=== PATIENT | female | born 1940 | race Caucasian/White ===

== ENCOUNTER 2016-08-31 13:23 | Emergency (ER) | payer OTHER ==
[~2016-08-31] VITALS: Ht 162.6 cm; Wt 49.9 kg
[2016-08-31 13:23] VITALS: BP 116/67
[~2016-08-31 13:23] MED LIST: ACEPHEN650 M1 RC; ACETAMINOP160 MG/12 PER TUBE; ACETAMINOP160 MG/5 M PER TUBE; ACETAMINOPHEN650 MG RECTAL; ALUM-MAG HYDRO360 ML PER TUBE; AMOX TR-K CLV1 EAC4 PO; ANTACID ANTI-G355 ML PO; ARTIFICIAL TEA1 EAC1 OP; ARTIFICIAL TEA1 EACH OP; ARTIFICIAL TEA1 EACH OPHTHALMIC; ARTIFICIAL TEA3.5 G2; ARTIFICIAL TEAR15 M3; ARTIFICIAL TEAR15 M3 OPHTHALMIC; ATIVAN1 MG PER TUBE; ATIVAN1 MG PO; AUGMENTIN 875875 MG PER TUBE; AUGMENTIN 875875 MG PO; CEFTIN 250 MG250 MG PER TUBE; CEFTIN 250 MG250 MG PO; CHLORHEXADINE120 M1 PO; CIPRO500 MG PER TUBE; CONSTULOSE10 GM/15 M PER TUBE; CONSTULOSE10 GM/15 M PO; DEX4 GLUCOSE1 EACH PO; DIGOX125 MCG PER TUBE; DUONEB 2.5-0.5 M3 ML INH; ENOXAPARIN30 MG/0.1 SUBQ; ENOXAPARIN40 MG/0.1 SUBQ; FAMOTIDINE PER TUBE; FAMOTIDINE40 MG/5 ML GT; FEVERALL JR 32325 M1 RECTAL; FEVERALL325 MG RECTAL; FEVERALL650 MG RECTAL; FLUOCINONI0.05 %/31 TOP; GERI-LANTA LIQ355 ML; GERI-LANTA LIQ355 ML PER TUBE; GLUCAGEN1 M2 INJECTION; GLUCAGEN1 MG IM; GLUCAGON HCL1 MG IM; GLUCOSE 40% GEL; GLUCOSE BITS1 GM PO; GLUTOSE GEL 1515 G1 PO; GLYCOPYRROLATE 11 MG PER TUBE; HYDROCODONE-AP1 EAC6 PER TUBE; INVANZ 1GM/NS 101 GM IV; IPRAT-ALBUT 0.5-3 ML INH; JEVITY1000 M1; K-SOL20 MEQ/15 PER TUBE; KEPPRA 100100 MG/M1 PER TUBE; KEPPRA 100100 MG/ML PER TUBE; KEPPRA 500 MG500 M1 PER TUBE; KEPPRA 500 MG500 M1 PO; KEPPRA 500 MG500 M2 PO; KEPPRA PER TUBE; KEPPRA XR750 MG PO; KETODAN 2% FOA554 GM; KRISTALOSE10 GM PER TUBE; LACTULOSE20 GM/30 M PER TUBE; LAMISIL AT 1% C12 G1; LAMISIL AT 1% C12 G1 TOP; LAMISIL AT 1% C12 G1 TP; LANOXIN 0.120.125 M2 PER TUBE; LIPITOR 20 MG T20 M1; LIPITOR 20 MG T20 M1 PER TUBE; LIPITOR 20 MG T20 M1 PO; LIQUITEARS15 ML OP; LIQUITEARS15 ML OPHTHALMIC; LOPRESSOR 12.12.5 MG PER TUBE; LOPRESSOR25 PER TUBE; LORAZEPAM 2MG TA2 M1 PER TUBE; LORAZEPAM I2 MG/1 ML PER TUBE; LORAZEPAM2 MG/1 M2 PER TUBE; MAG-AL PLUS SUS30 ML; MAGNESIUM OXID400 MG PER TUBE; MAGNESIUM400 M1 PER TUBE; MAGNESIUM400 MG PER TUBE; MAGOX 400400 MG PER TUBE; MAGOX 400400 MG PO; MAPAP160 MG/51 PER TUBE; MAPAP160 MG/53 PER TUBE; MAXIPIME1 GM IVPB; MI ACID LIQUID355 ML PO; MI-ACID80 MG PER TUBE; MORPHINE S20 MG/1 ML PO; NEPHRO-VITE RX1 TA1 GT; NEPHROCAPS SOFT1 CAP; NEPHROCAPS SOFT1 CAP GT; NEPHROCAPS SOFT1 CAP PER TUBE; NEPHROCAPS SOFT1 CAP PO; NITROFURAN25 MG/5 ML PER TUBE; NIZORAL120 ML TP; NORVASC5 M1 PER TUBE; NORVASC5 MG; NORVASC5 MG PER TUBE; NOVOLOG FL100 UNIT/M SUBQ; NOVOLOG100 UNIT/1; NOVOLOG100 UNIT/1 SQ; NOVOLOG100 UNIT/1 SUBQ; NOVOLOG100 UNIT/M SUBQ; ONDANSETRON HCL4 M2 PO; ORADENT 0.1% DEN5 G1; ORADENT 0.1% DEN5 G1 TOP; PANTOPRAZOLE SO40 M1 PO; PAROXETINE HCL20 MG PER TUBE; PAXIL 20 MG TAB20 MG PER TUBE; PAXIL10 MG; PEPCID20 MG PO; PERIDEX 0.12%473 M1 PO; PERIDEX15 ML MM; PERIDEX15 ML SWISH&SPIT; POT CHLORIDE 10% PER TUBE; POTASSIUM20 MEQ/15 PER TUBE; POTASSIUM20 PER TUBE; PREDNISONE 10 M10 MG PO; PREVACID 15 MG15 M4 DISSOLVE; PREVACID 15 MG15 M4 PER TUBE; PREVACID15 MG; PROBIOTIC1 EAC1 PER TUBE; PROTONIX40 M1 IV; PROTONIX40 M1 PO; PROTONIX40 M2 PER TUBE; PROTONIX40 M3 PER TUBE; Q-PAP160 MG/5 M PER TUBE; RENAL CAPS SOFTG1 MG PER TUBE; RENAL CAPS SOFTG1 MG PO; ROXANOL T PER TUBE; SIMVASTATIN40 MG PER TUBE; SULFAMETHOXAZO1 EACH PO; TEARS NATURALE1 EACH OPHTHALMIC; TERBINAFINE15 GM TP; TRIAMCINOLONE A15 G1 TOP; TRIAMCINOLONE A80 G2; TRIAMCINOLONE A80 G2 TOP; TYLENOL325 MG PER TUBE; VISTARIL 25 MG25 M1 PO; ZOSYN 3.3753.375 GM IV; ZYVOX600 MG PO; [UNRECOGNIZED DRUG - CODE] PER TUBE; [UNRECOGNIZED DRUG - OTHER]; [UNRECOGNIZED DRUG - OTHER] PER TUBE; [UNRECOGNIZED DRUG - OTHER] TOP
[2016-08-31 16:54] VITALS: BP 134/85
== END 2016-08-31 17:04 ==
LOC: ER 13:23 → EROBS 16:59 → ER 16:59 → EROBS 17:04 → ER 17:04
DX: K94.23 Gastrostomy malfunction (principal); I48.91 Unspecified atrial fibrillation; E11.22 Type 2 diabetes mellitus with diabetic chronic kidney disease; I12.9 Hypertensive chronic kidney disease with stage 1 through stage 4 chronic kidney disease, or unspecified chronic kidney disease; N18.2 Chronic kidney disease, stage 2 (mild); Z79.4 Long term (current) use of insulin; F41.9 Anxiety disorder, unspecified; J44.9 Chronic obstructive pulmonary disease, unspecified; Z85.038 Personal history of other malignant neoplasm of large intestine; Z88.5 Allergy status to narcotic agent; Z88.6 Allergy status to analgesic agent; F17.210 Nicotine dependence, cigarettes, uncomplicated; F10.99 Alcohol use, unspecified with unspecified alcohol-induced disorder